=== PATIENT | female | born 1965 | race Caucasian/White ===

== ENCOUNTER 2016-08-20 17:07 | Emergency (ER) | payer MEDICAID ==
[2016-08-20] MEDS ORDERED: KETOROLAC 60 MG/2 ML VIAL IM ONE (18:47)
== END 2016-08-20 21:55 | disposition home or self-care (01) ==
LOC: ER 17:07
DX: S80.212A Abrasion, left knee, initial encounter (principal); S80.211A Abrasion, right knee, initial encounter; S83.92XA Sprain of unspecified site of left knee, initial encounter; W18.30XA Fall on same level, unspecified, initial encounter; Y93.89 Activity, other specified; Y92.098 Other place in other non-institutional residence as the place of occurrence of the external cause; S80.02XA Contusion of left knee, initial encounter; Z79.899 Other long term (current) drug therapy; Z79.4 Long term (current) use of insulin; Z79.84 Long term (current) use of oral hypoglycemic drugs
CPT/HCPCS: 96372